=== PATIENT | male | born 1955 | race Caucasian/White ===

== ENCOUNTER 2016-10-27 16:33 | Emergency (ER) | payer OTHER, MEDICARE ==
[2016-10-27] MEDS ORDERED: Acetaminophen/HYDROcodone 325-5 MG Tab PO ONE (16:58)
[2016-10-27] MEDS ORDERED: Ketorolac 60 MG/2 ML SDV IM ONE (16:58)
--- NOTE | 2016-10-27 17:04 | EDM.PDOC ---
ED HPI GENERAL MEDICAL PROBLEM - General Chief Complaint: Upper Extremity Injury/Pain Stated Complaint: KNEE PAIN/ARM PAIN Time Seen by Provider: 10/27/16 16:46 Source of Information: Reports: Patient History Limitations: Reports: No Limitations - History of Present Illness INITIAL COMMENTS - FREE TEXT/NARRATIVE: Patient is a 61 y/o male who presents to the E.D. complaining of right shoulder and right knee pain. Patient states he is traveling from [place] back to [facility] in a motorhome when he stood up to go to the bathroom and got jossled falling into the door jam. Fall was minimal. States reaggravated his right shoulder. Pain to knee is constant with no new changes. PCP at [facility] in [place]. Denies taking any pain medications. Denies loc, neck/back pain, n/t, or any additional complaints. Patient normally uses a cane to get around. Patient has a previous history of surgery for the right shoulder with hardware in place. 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 Onset: Today Duration: Constant, Waxing/Waning Location: Reports: Upper Extremity, Right, Lower Extremity, Right Quality: Reports: Ache Severity: Mild Improves with: Reports: None Worsens with: Reports: Movement Context: Reports: Other Right Arm Pain Score (Numeric/FACES): 7 - Related Data Allergies Allergy/AdvReac Type Severity Reaction Status Date / Time avalox Allergy Pain Uncoded 10/27/16 16:44 Home Meds: Home Meds Albuterol [Proventil HFA] 6.7 gm INH QID 10/27/16 [History] Hydrochlorothiazide 12.5 mg PO DAILY 10/27/16 [History] amLODIPine [Norvasc] 5 mg PO DAILY 10/27/16 [History] Review of Systems - Review of Systems Review Of Systems: See Below Musculoskeletal: Reports: Shoulder Pain (right), Joint Pain (right knee). Denies: Neck Pain, Back Pain, Joint Swelling Neurological: Denies: Numbness, Tingling ED EXAM, GENERAL - Physical Exam Exam: See Below Exam Limited By: No Limitations General Appearance: Alert, WD/WN, No Apparent Distress Ears: Hearing Grossly Normal Nose: Normal Inspection Throat/Mouth: Normal Voice, No Airway Compromise Head: Atraumatic, Normocephalic Neck: Normal Inspection, Supple Respiratory/Chest: No Respiratory Distress, Lungs Clear, Normal Breath Sounds, No Accessory Muscle Use, Chest Non-Tender Cardiovascular: Normal Peripheral Pulses, Regular Rate, Rhythm Peripheral Pulses: 2+: Radial (R) GI/Abdominal: Normal Bowel Sounds, Soft, Non-Tender, No Organomegaly, No Distention Back Exam: Normal Inspection, Full Range of Motion. No: Paraspinal Tenderness, Vertebral Tenderness Extremities: Normal Inspection, No Pedal Edema, Normal Capillary Refill, Other Neurological: Alert, Oriented, Normal Cognition, No Motor/Sensory Deficits Psychiatric: Normal Affect, Normal Mood Skin Exam: Warm, Dry, Intact, Normal Color, No Rash Front/Back Body Diagram: 1 - Right shoulder: increased pain with palpation of the lateral aspect of the shoulder. Large surgical incision to bicep. Decreased AROM and PROM noted. No weakness noted. No swelling, deformity, bruising, or abrasions noted. No pain with palpation of right clavicle/ac joint, elbow, forearm, wrist/hand. 2 - Large scar to the rigth anterior knee noted. No swelling, deformity, bruising, or abrasions present. No pain with palpation of the right knee. Patient ambulated into the E.D. with a cane. Course - Vital Signs Last Recorded V/S: Last Vital Signs Temp 98.6 F 10/27/16 17:32 Pulse 78 10/27/16 17:32 Resp 16 10/27/16 17:32 BP 138/78 10/27/16 17:32 Pulse Ox 92 L 10/27/16 17:32 - Orders/Labs/Meds Orders: Active Orders 24 hr Category Date Time Status Humerus Rt [CR] Stat Exams 10/27/16 17:00 Taken Meds: Medications Discontinued Medications Generic Name Dose Route Start Last Admin Trade Name Freq PRN Reason Stop Dose Admin Hydrocodone Bitart/Acetaminophen 1 tab 10/27/16 16:58 10/27/16 17:27 [place] 325-5 Mg PO 10/27/16 16:59 1 tab ONETIME ONE Administration Ketorolac Tromethamine 60 mg 10/27/16 16:58 10/27/16 17:28 Toradol IM 10/27/16 16:59 60 mg ONETIME ONE Administration - Re-Assessments/Exams Free Text/Narrative Re-Assessment/Exam: 10/27/16 16:59 Ordered x-ray of the right shoulder, norco 5-325 PO x1, and toradol 60mg IM. 10/27/16 17:15 Meant to order x-ray of the humerus. This was changed by X-ray. 10/27/16 18:00 X-ray of right humerus impression: hardware in place and appears intact.No acute bony abnormalities. Reviewed with Dr. Riley, final interpretation pending. Discharged home with instructions as documented. Departure - Departure Time of Disposition: 18:01 Disposition: Home, Self-Care 01 Condition: good Clinical Impression: Shoulder pain, right Qualifiers: Chronicity: acute Qualified Code(s): M25.511 - Pain in right shoulder Knee pain, chronic Qualifiers: Laterality: right Qualified Code(s): M25.561 - Pain in right knee - Discharge Information Referrals: PCP,Not In Area [Primary Care Provider] - Forms: ED Department Discharge Additional Instructions: No driving this evening since receiving sedative medication in the E.D. Refrain from any activities that cause worsening pain. Continue to take ibuprofen and tylenol in alternating fashion for pain. Ice affected areas as needed. See your orthopedic surgeon upon returning home for further evaluation and treatment as needed. Return to the ED for any new or worsening symptoms. - My Orders Last 24 Hours: My Active Orders 10/27/16 17:00 Humerus Rt [CR] Stat - Assessment/Plan Last 24 Hours: My Active Orders 10/27/16 17:00 Humerus Rt [CR] Stat
[2016-10-27 17:34] VITALS: BP 138/78
--- NOTE | 2016-10-29 09:37 | CR ---
Right humerus: Two views of the right humerus were obtained. Comparison: No previous study. Old healed fracture is seen within the mid one third diaphysis of the humerus. Plate and screws are seen. No acute fracture or other abnormality is appreciated. Impression: 1. Old healed fracture within the mid humerus with plate and screws in place. 2. Nothing acute is identified on two-view right humerus study. Diagnostic code #2
== END 2016-10-27 18:20 | disposition home or self-care (01) ==
LOC: JD.ED 16:33
DX: M25.511 Pain in right shoulder (principal); M25.561 Pain in right knee; G89.29 Other chronic pain; Z79.899 Other long term (current) drug therapy; Z88.1 Allergy status to other antibiotic agents
CPT/HCPCS: 73060; 96372; 99284; A9270; J1885; 99283